=== PATIENT | male | born 1940 | race Caucasian/White ===

== ENCOUNTER → 2017-03-09 | Outpatient (CLI) | payer MEDICARE, OTHER ==
[2017-03-09 07:16] LABS: Blood Urea Nitrogen 25 mg/dL (9-20); Non-African American GFR(MDRD) 53 (>60 ml/min/1.73 sqM)
--- NOTE | 2017-03-09 08:58 | CT ---
EXAMINATION TYPE: CT angio abdomen DATE OF EXAM: 03/09/2017 COMPARISON: NONE HISTORY: Abdominal aortic aneurysm without rupture per order. CT DLP: 1991.0 mGycm, Automated Exposure Control for Dose Reduction was Utilized. CONTRAST: CTA scan of the abdomen and pelvis is performed without oral and without and with IV Contrast, patie nt injected with 80 mL of Visipaque 320. Aneurysm protocol with Three-D reformatted images are create d on independent workstation and reviewed. FINDINGS: VASCULAR: There is ectatic course to the aorta. There is large aneurysm mid to distal aspect measurin g 6 to 7 cm in length on coronal image 59, aneurysm measures 5.5 x 5.5 cm transversely on axial image 30 series 7. Just superior to this there is marked anterior course with small focal aneurysm measuri ng 2.6 cm transversely noted. Aneurysm does not extend into common iliac bifurcation. There is mild c alcified plaque along course of the abdominal aorta. There is more moderate plaque in the common tiff c arteries bilaterally. There is more severe noncalcified plaque in the right greater than left inter nal iliac arteries without significant stenosis identified. External iliac arteries are patent to com mon femoral arteries and branching superficial and deep femoral arteries without significant stenosis . There is mild calcified plaque at common femoral artery level bilaterally. Surgical clips left groi n region are noted. LUNG BASES: There is partial visualization of right-sided pacemaker/defibrillator lead. LIVER/GB: No significant abnormality is appreciated. PANCREAS: No significant abnormality is seen. SPLEEN: No significant abnormality is seen. ADRENALS: No significant abnormality is seen. KIDNEYS: There is 2 cm simple appearing cyst laterally upper pole level left kidney. BOWEL: No significant abnormality is seen. PROSTATE/SEMINAL VESICLES: Central zone calcifications are seen in normal size prostate gland. LYMPH NODES: No greater than 1cm abdominal or pelvic lymph nodes are appreciated. OSSEOUS STRUCTURES: Moderate multilevel spurring in visualized spine. There is vacuum disc phenomenon with mild to moderate disc space narrowing L5-S1 level. OTHER: No significant additional abnormality is seen. IMPRESSION: 1. There is 5.5 cm aneurysm the mid to distal abdominal aorta over roughly 6 to 7 cm in length, advis ed endovascular surgical or IR referral if has not been performed to assess for stent graft. Imaging monitoring every 3-6 months time is advised.
== END | disposition home or self-care (01) ==
LOC: RADCTMAIN 06:34
PROVIDERS: ATTEND Thoracic Surgery (Cardiothoracic Vascular Surgery)
DX: I71.4 Abdominal aortic aneurysm, without rupture (principal)
CPT/HCPCS: 82565; 84520; 74175; 36415; Q9967